=== PATIENT | male | born 1930 | race Caucasian/White ===

== ENCOUNTER → 2016-09-09 | Outpatient (CLI) | payer MEDICARE ==
[~2016-09-09] MED LIST: ANTIVERT 25MG T25 MG PO; ARICEPT10 MG PO; ASPIRIN81 MG PO; BUSPIRONE HCL10 MG PO; CLARITIN10 M2 PO; CLONAZEPAM0.5 MG PO; COREG 3.125M3.125 MG PO; EFFEXOR XR150 MG PO; EFFEXOR XR75 MG PO; ELAVIL 50 MG TA50 MG PO; ELIQUIS5 MG PO; FENOFIBRATE145 MG PO; HUMALOG100 UNIT/1 SQ; KLONOPIN TAB 00.5 MG PO; LEVEMIR100 UNIT/1 SQ; LYRICA150 MG PO; LYRICA75 MG PO; NEXIUM40 MG PO; NORVASC 5 MG TAB5 MG PO; OXYCODONE HCL10 MG PO; PLAVIX 75 MG TA75 MG PO; PRAVACHOL20 MG PO; PROAIR HFA8.5 GM INH; RANEXA500 MG PO; REMICADE I100 MG/VIA PO; TIZANIDINE HCL4 MG PO; VITAMIN B-121000 MC3 PO
[2016-09-09 17:29] LABS: HEMOGLOBIN 13.1 gm/dl (14.0-17.5); RED BLOOD COUNT 4.06 M/UL (4.20-5.50)
[2016-09-09 17:42] LABS: WHITE BLOOD COUNT 7.9 K/UL (4.5-11.0)
== END ==
LOC: LAB 17:07
PROVIDERS: Ophthalmology
DX: H47.11 Papilledema associated with increased intracranial pressure (principal)
CPT/HCPCS: 36415; 82565; 84520; 85025; 86140

== ENCOUNTER → 2016-09-10 | Outpatient (CLI) | payer MEDICARE | LOC: MRI 07:58 | DX: H47.11 Papilledema associated with increased intracranial pressure (principal) | CPT/HCPCS: 70551 ==

== ENCOUNTER → 2016-09-13 | Outpatient (CLI) | payer MEDICARE ==
[2016-09-13 09:32] LABS: URINE TOTAL PROTEIN 28 mg/dl
== END ==
LOC: LAB 09:03
PROVIDERS: Internal Medicine Nephrology
DX: N18.3 Chronic kidney disease, stage 3 (moderate) (principal)
CPT/HCPCS: 84156

== ENCOUNTER → 2016-09-22 | Outpatient (CLI) | payer MEDICARE | LOC: EMI 09-17 17:30 | DX: M25.512 Pain in left shoulder (principal); H53.132 Sudden visual loss, left eye; G25.0 Essential tremor; E11.41 Type 2 diabetes mellitus with diabetic mononeuropathy; E11.29 Type 2 diabetes mellitus with other diabetic kidney complication; E11.69 Type 2 diabetes mellitus with other specified complication; E11.65 Type 2 diabetes mellitus with hyperglycemia; I82.721 Chronic embolism and thrombosis of deep veins of right upper extremity; K50.90 Crohn's disease, unspecified, without complications; I12.9 Hypertensive chronic kidney disease with stage 1 through stage 4 chronic kidney disease, or unspecified chronic kidney disease; N18.3 Chronic kidney disease, stage 3 (moderate); M75.102 Unspecified rotator cuff tear or rupture of left shoulder, not specified as traumatic | CPT/HCPCS: 73221 ==